=== PATIENT | male | born 1960 | race Caucasian/White ===

== ENCOUNTER 2016-11-07 22:50 | Emergency (ER) | payer MEDICAID ==
[~2016-11-07] VITALS: Ht 177.8 cm; Wt 76.2 kg
[~2016-11-07 22:50] MED LIST: LISI-170 PO
[2016-11-07 22:58] VITALS: BP 166/98
== END 2016-11-07 23:45 | disposition home or self-care (01) ==
LOC: ED 23:31
DX: S01.81XD Laceration without foreign body of other part of head, subsequent encounter (principal); I10 Essential (primary) hypertension; F17.200 Nicotine dependence, unspecified, uncomplicated; Y08.89XD Assault by other specified means, subsequent encounter; Y92.89 Other specified places as the place of occurrence of the external cause; Y99.8 Other external cause status
CPT/HCPCS: 99282